=== PATIENT | female | born 1995 | race Two or more races ===

== ENCOUNTER 2017-06-26 00:56 | Emergency (ER) | payer SELFPAY ==
[~2017-06-26] VITALS: Ht 157.5 cm; Wt 82.0 kg
[2017-06-26] MEDS ORDERED: MORPHINE SULFATE 4 MG/ML, 1ML IVPush PRN (01:30)
[2017-06-26] MEDS ORDERED: ONDANSETRON ODT 4 MG PO ONE (01:30)
[2017-06-26] MEDS ORDERED: SODIUM CHLORIDE FLUSH 10ML SYR IVF ONE (01:30)
[2017-06-26] MEDS ORDERED: ONDANSETRON ODT 4 MG ONE (01:31)
[2017-06-26] MEDS ORDERED: MORPHINE SULFATE 4 MG/ML, 1ML ONE (01:32)
[2017-06-26 01:37] LABS: MEAN CORPUSCULAR HEMOGLOBIN 29.2 pg (27.0-34.8); MEAN CORPUSCULAR HGB CONC 33.5 g/dL (32.4-35.8); MEAN CORPUSCULAR VOLUME 87.3 fL (80-100); MEAN PLATELET VOLUME 8.8 fL (7.4-10.4); PLATELET COUNT 374 x10^3/uL (130-400); RED BLOOD COUNT 5.22 x10^6/uL (3.82-5.3); RED CELL DISTRIBUTION WIDTH 12.2 % (9.6-15.2)
[2017-06-26 01:51] LABS: BASOPHILS # (AUTO) 0.05 x10^3/uL (0-0.3); BASOPHILS % (AUTO) 0 % (0-1); EOSINOPHILS # (AUTO) 0.05 x10^3/uL (0-0.8); EOSINOPHILS % (AUTO) 0 % (1-7); LYMPHOCYTES # (AUTO) 4.99 x10^3/uL (1-6.1); LYMPHOCYTES % (AUTO) 28 % (22-44); MD SCAN; MONOCYTES # (AUTO) 1.03 x10^3/uL (0-1.4); MONOCYTES % (AUTO) 6 % (2-9); NEUTROPHILS # (AUTO) 11.46 x10^3/uL (1.8-8.0); NEUTROPHILS % (AUTO) 65 % (42-75)
[2017-06-26 01:52] LABS: ALANINE AMINOTRANSFERASE 28 U/L (12-78); ALBUMIN 4.6 g/dL (3.4-5.0); ANION GAP 9 mmol/L (5-15); CALCIUM 9.3 mg/dL (8.5-10.1); CHLORIDE 106 mmol/L (98-107); CREATININE 0.88 mg/dL (0.55-1.02)
[2017-06-26 01:56] LABS: ALKALINE PHOSPHATASE 114 U/L (45-117); BILIRUBIN,TOTAL 0.5 mg/dL (0.2-1.0); TOTAL PROTEIN 8.7 g/dL (6.4-8.2)
[2017-06-26 02:21] LABS: CULTURE INDICATED? YES; MICROSCOPIC INDICATED
[2017-06-26 03:24] VITALS: BP 111/47
== END 2017-06-26 04:09 | disposition home or self-care (01) ==
LOC: ED 04:00
DX: K80.20 Calculus of gallbladder without cholecystitis without obstruction (principal)
CPT/HCPCS: 36415; 76700; 80053; 81001; 83690; 84703; 85025; 87077; 87086; 96374; 99285; Q0162